=== PATIENT | female | born 1975 | race Caucasian/White ===

== ENCOUNTER 2020-03-29 08:10 | Emergency (ER) | payer OTHER ==
[~2020-03-29] VITALS: Ht 160 cm; Wt 68.0 kg
[~2020-03-29 08:10] MED LIST: ULTRACET PO
[2020-03-29] MEDS ORDERED: SYNTHROID50 MCG (08:27)
[2020-03-29] MEDS ORDERED: PROMETRIUM200 MG PO (08:28)
== END 2020-03-29 14:22 | disposition home or self-care (01) ==
LOC: ER 08:10
DX: R10.31 Right lower quadrant pain (principal); Z20.828 Contact with and (suspected) exposure to other viral communicable diseases

== ENCOUNTER 2020-04-09 21:56 | Emergency (ER) | payer OTHER ==
[~2020-04-09] VITALS: Ht 160 cm; Wt 69.4 kg
[~2020-04-09 21:56] MED LIST changes: +PROMETRIUM200 MG PO; +SYNTHROID50 MCG
[2020-04-10] MEDS ORDERED: KETO10TA2 PO (03:29)
[2020-04-10] MEDS ORDERED: ORPHENADRINE C100 MG PO (03:29)
[2020-04-10] MEDS ORDERED: PEPCID AC20 MG PO (03:29)
== END 2020-04-10 03:49 | disposition home or self-care (01) ==
LOC: ER 21:56
DX: R10.84 Generalized abdominal pain (principal); R07.89 Other chest pain; M62.830 Muscle spasm of back